=== PATIENT | female | born 1960 | race Caucasian/White ===

== ENCOUNTER → 2016-11-19 | Outpatient (CLI) | payer OTHER | LOC: FIMAGING 10:18 | DX: Z12.31 Encounter for screening mammogram for malignant neoplasm of breast (principal); Z80.3 Family history of malignant neoplasm of breast | CPT/HCPCS: G0202 ==

== ENCOUNTER 2017-10-22 23:01 | Emergency (ER) | payer OTHER ==
[2017-10-22 23:25] VITALS: RESP 16; TEMP 98.2
--- NOTE | 2017-10-23 00:06 | EDPHY ---
H & P Stated Complaint: c/o elevated bp x 1 week, tonight concerned = very high bp Time Seen by Provider: 10/22/17 23:49 HPI/ROS: HPI The patient presents with elevated blood pressure readings for the last 1 week. The patient's brother had a stroke at 63 years of age about 1 and half months ago. The patient began to be concerned about her own blood pressure. Over the last 1 week she has been checking her blood pressure at home and has readings in the 160s over 90s. However tonight it was 199/1 20s. This made her very concerned so she came to the emergency department. Her blood pressure previously was in the 130 systolic. She does not have a primary care doctor. She is not on any medications. She denies any chest pain, shortness of breath, nausea, vomiting, dizziness, weakness, headache.. REVIEW OF SYSTEMS Constitutional: No fever, no chills. Eyes: No discharge. ENT: No sore throat. Cardiovascular: No chest pain, no palpitations. Respiratory: No cough, no shortness of breath. Gastrointestinal: No abdominal pain, no vomiting. Genitourinary: No hematuria. Musculoskeletal: No back pain. Skin: No rashes. Neurological: No headache. PMHx: History of ovarian cancer Soc Hx: Housed PHYSICAL General Appearance: Alert, no distress Eyes: Pupils equal and round no pallor or injection ENT, Mouth: Mucous membranes moist Respiratory: There are no retractions, lungs are clear to auscultation Cardiovascular: Regular rate and rhythm Gastrointestinal: Abdomen is soft and non-tender, no masses, bowel sounds normal Neurological: A&O, moves all extremities Skin: Warm and dry, no rashes Musculoskeletal: Neck is supple non tender Extremities: symmetrical, full range of motion Psychiatric: Patient is oriented X 3, there is no agitation Source: Patient Exam Limitations: No limitations - Medical/Surgical History Hx Asthma: No Hx Chronic Respiratory Disease: No Hx Diabetes: No Hx Cardiac Disease: No Hx Renal Disease: No Hx Cirrhosis: No Hx Alcoholism: No Hx HIV/AIDS: No Hx Splenectomy or Spleen Trauma: No Other PMH: hysterectomy, , uterine ca - Social History Smoking Status: Never smoked Constitutional: Initial Vital Signs Temperature (C) 36.8 C 10/22/17 23:22 Heart Rate 71 10/22/17 23:22 Respiratory Rate 16 10/22/17 23:22 Blood Pressure 192/132 H 10/22/17 23:22 O2 Sat (%) 95 10/22/17 23:22 O2 Delivery Mode Room Air Allergies/Adverse Reactions: No Known Allergies Allergy (Verified 10/22/17 23:25) Home Medications: Medication Instructions Recorded NK [No Known Home Meds] 10/22/17 Medical Decision Making Differential Diagnosis: 57-year-old female presents with elevated blood pressure readings over the last 1 week, 160s over 90s, and more elevated tonight 199/120. She was very concerned, so comes to the emergency department. She does not have any symptoms. She does not have a primary care doctor. She has never been on antihypertensive medications. I feel she likely is suffering from hypertension without any evidence of hypertensive emergency. I have explained this to her. As plan to check EKG and labs to evaluate for any end-organ damage. I will have her follow up with the outpatient medicine doctor on-call for primary care and possible initiation of anti hypertensives. - Data Points Laboratory Results: Laboratory Results 10/23/17 00:24 10/23/17 00:24 Sodium 144 mEq/L mEq/L (135-145) Potassium 3.7 mEq/L mEq/L (3.5-5.2) Chloride 102 mEq/L mEq/L (97-110) Carbon Dioxide 30 mEq/l mEq/l (22-31) Anion Gap 12 mEq/L mEq/L (8-16) BUN 32 mg/dL H mg/dL (7-23) Creatinine 0.6 mg/dL mg/dL (0.6-1.0) Estimated GFR > 60 Glucose 93 mg/dL mg/dL (70-100) Calcium 10.5 mg/dL H mg/dL (8.5-10.4) Departure - Departure Disposition: Home, Routine, Self-Care Clinical Impression: Elevated blood pressure reading Condition: Good Instructions: Chronic Hypertension (ED) Additional Instructions: Please call the doctor listed below to arrange for primary care. You should record your blood pressure reading once a day. Referrals: Daryl Mendieta MD [Medical Doctor] - As per Instructions
--- NOTE | 2017-10-23 00:29 | CPEKG ---
Heart Rate: 57 RR Interval: 1053 P-R Interval: 192 QRSD Interval: 80 QT Interval: 464 QTC Interval: 452 P [place]: 66 QRS [place]: 1 T Wave [place]: 41 EKG Severity - NORMAL ECG - EKG Impression: SINUS RHYTHM Electronically Signed By: Toya Mcintyre 23-Oct-2017 06:42:05
[2017-10-23 01:16] VITALS: BP 141/89; PULSE 50; O2SAT 95
== END 2017-10-23 01:16 | disposition home or self-care (01) ==
DX: R03.0 Elevated blood-pressure reading, without diagnosis of hypertension (principal); Z85.43 Personal history of malignant neoplasm of ovary

== ENCOUNTER → 2017-11-21 | Outpatient (CLI) | payer OTHER | LOC: FIMAGING 09:10 | DX: Z12.31 Encounter for screening mammogram for malignant neoplasm of breast (principal); Z80.3 Family history of malignant neoplasm of breast ==

== ENCOUNTER 2018-06-30 12:46 | Emergency (ER) | payer OTHER ==
--- NOTE | 2018-06-30 13:17 | EDPHY ---
H & P Stated Complaint: [place], Head Lac - Personal History Current Tetanus Diphtheria and Acellular Pertussis (TDAP): Yes - Medical/Surgical History Hx Asthma: No Hx Chronic Respiratory Disease: No Hx Diabetes: No Hx Cardiac Disease: No Hx Renal Disease: No Hx Cirrhosis: No Hx Alcoholism: No Hx HIV/AIDS: No Hx Splenectomy or Spleen Trauma: No Other PMH: hysterectomy, , uterine ca - Social History Smoking Status: Never smoked Time Seen by Provider: 06/30/18 12:50 Constitutional: Initial Vital Signs Temperature (C) 36.8 C 06/30/18 12:53 Heart Rate 64 06/30/18 12:53 Respiratory Rate 18 06/30/18 12:53 Blood Pressure 173/98 H 06/30/18 12:53 O2 Sat (%) 98 06/30/18 12:53 O2 Delivery Mode Room Air Allergies/Adverse Reactions: No Known Allergies Allergy (Verified 10/22/17 23:25) Home Medications: Medication Instructions Recorded NK [No Known Home Meds] 10/22/17 Medical Decision Making - Diagnostics Imaging: Discussed imaging studies w/ fruit express agent Radiologist, I viewed and interpreted images myself Procedures: Procedure: Laceration repair. I was requested by Dr. Henry to perform wound closure I explained the indications, risks and benefits for both laceration repair and anesthetic administration. Verbal consent was obtained from the patient. The 2 cm laceration on the occipital was anesthetized using 0.5% bupivicaine with epinephrine. After anesthetic administered the patient was observed for a period of time and had no apparent adverse effects. The wound was cleaned, prepped, draped in normal sterile fashion and explored to its base. No foreign body seen, no foreign bodies palpated. There were no deep structures involved. The wound was repaired with 3 yvan. The wound repair was simple. The procedure was performed by myself. Patient has been informed that scarring will occur, although efforts have been made to minimize this. (Francesco Cain) ED Course/Re-evaluation: CHIEF COMPLAINT: Head injury HISTORY OF PRESENT ILLNESS: The patient is a 58 y/o female who complains of headache following a mechanical fall and head strike this morning. Around 11:15 today, about 2 hours ago, she slipped on the ice and fell backwards striking the back of her head on concrete. She did not lose consciousness, but says it felt "like my pascual got rung." She denies weakness, paresthesias, or vision changes. She currently complains of tightness around her jaw on both sides, mild neck pain, and forehead and eye pressure. She is normally healthy and not on anticoagulants. REVIEW OF SYSTEMS: A comprehensive 10 system review of systems is otherwise negative aside from elements mentioned in the history of present illness and medical decision making. PHYSICAL EXAM: HR, BP, O2 Sat, RR. Temp noted General Appearance: Alert, well hydrated, appropriate, and non-toxic appearing. Head: Occipital abrasion and hematoma, otherwise atraumatic without scalp tenderness or obvious injury Eyes: Pupils equal, round, reactive to light and accommodation, EOMI, no trauma , no injection. Ears: Clear bilaterally, no perforation, normal landmarks Nose: Atraumatic, no rhinorrhea, clear. Throat: Mucus membranes moist. Neck: Supple, non-tender, no lymphadenopathy. Respiratory: No retractions, no distress, no wheezes, and no accessory muscle use. Lungs are clear to auscultation bilaterally. Cardiovascular: Regular rate and rhythm, no murmurs, rubs, or gallops. Good capillary refill all extremities. Gastrointestinal: Abdomen is soft, non-tender, non-distended, no masses, no rebound, no guarding, no peritoneal signs. Musculoskeletal: Normal active ROM of all extremities, atraumatic. Neurological: Alert, appropriate, and interactive. The patient has non-focal cranial nerves, motor, sensory, and cerebellar exam. Skin: No rashes, good turgor, no nodules on palpation. PAST MEDICAL HISTORY: Uterine cancer PAST SURGICAL HISTORY: Hysterectomy, SOCIAL HISTORY: Traveling to [facility] for 4 months. . Just retired. DIAGNOSTICS/PROCEDURES/CRITICAL CARE TIME: Head CT: pending DIFFERENTIAL DIAGNOSIS: The differential diagnosis for the patient's head injury included but was not limited to concussion, skull fracture, intra- parenchymal contusion, subarachnoid, subdural and epidural hematoma. MEDICAL DECISION MAKING: This is a healthy 58 y/o female who presents with a headache secondary to a mechanical fall and head strike this morning. She has an occipital hematoma and abrasion and nonfocal neuro exam. Plan for head and neck CT to rule out intracranial or spinal process. Patient care signed out a shift change pending head CT results and wound care. (Nnamdi Henry) 2:45 p.m.: CT head and cervical spine are negative per Radiology interpretation. Images reviewed myself. Re-evaluation of the patient she is answering questions appropriately, interactive, think she can be discharged. She is leaving for [place] in 12 days, she will return to the ER in 7 days for staple removal. Given usual and customary head injury precautions and instructions. (Francesco Cain) Departure - Departure Disposition: Home, Routine, Self-Care Clinical Impression: Head injury Qualifiers: Encounter type: initial encounter Qualified Code(s): S09.90XA - Unspecified injury of head, initial encounter Condition: Good Instructions: Head Injury (ED) Additional Instructions: Follow up with your primary care provider as needed. Return to the nearest ED for severe headache, weakness or numbness on one side of your body, vision changes, speech difficulty, or other worsening of condition. Adult Pain & Fever Control: We recommend Acetaminophen (Tylenol) and Ibuprofen (Motrin,Advil) for pain and fever control. When fever is high or pain severe, both drugs can be used at the same time, but at different intervals. Please note the time differences. Your dose is: Acetaminophen 650mg every 4 to 6 hours Ibuprofen 600mg every 8 hours with food Note: do not take Acetaminophen with Hydrocodone (Vicodin, Lortab) or Oxycodone (Percocet). These medications also contain Acetaminophen. No more than 3000mg of Acetaminophen should be taken in 24 hours (for an adult). Referrals: Daryl Mendieta MD [Primary Care Provider] - As per Instructions Return, to the ER in 7 days for staple removal [Other] - 07/07/18 Report Scribed for: Nnamdi Henry Report Scribed by: Kim Amador Date of Report: 06/30/18 Time of Report: 13:21
[2018-06-30 14:37] VITALS: BP 155/101
== END 2018-06-30 15:01 | disposition home or self-care (01) ==
PROC: 0HQ0XZZ Repair Scalp Skin, External Approach (ICD-10-PCS; principal; 2018-06-30)
DX: S01.01XA Laceration without foreign body of scalp, initial encounter (principal); W00.0XXA Fall on same level due to ice and snow, initial encounter; Y99.8 Other external cause status

== ENCOUNTER → 2018-12-08 | Outpatient (CLI) | payer OTHER | LOC: FIMAGING 10:58 | PROVIDERS: ATTEND Obstetrics & Gynecology | DX: Z12.31 Encounter for screening mammogram for malignant neoplasm of breast (principal); Z80.3 Family history of malignant neoplasm of breast ==